=== PATIENT | male | born 1990 | race Two or more races ===

== ENCOUNTER → 2024-05-23 | Outpatient (CLI) | payer MEDICAID, SELFPAY ==
--- NOTE | 2024-05-23 16:14 | XR_ITS ---
Examination: Foot, right, 3 views Technique: AP, oblique, lateral views foot, 3 views Date and time of exam: May 23, 2024 at 1434 hours INDICATIONS: History fracture proximal phalanx fifth digit postop reduction internal fixation FINDINGS: Orthopedic pin traverses the proximal phalanx fifth digit with partial healing of the fracture in stomach satisfactory alignment IMPRESSION: Partial healing proximal phalanx fifth digit with stable and satisfactory alignment
== END | disposition home or self-care (01) ==
PROVIDERS: PCP Podiatrist; Referring Provider Podiatrist; Visit Provider Podiatrist
DX: M79.675 Pain in left toe(s) (principal); Z87.81 Personal history of (healed) traumatic fracture
CPT/HCPCS: 73630